=== PATIENT | female | born 1995 ===

== ENCOUNTER 2021-10-13 13:32 | Inpatient (IN) | payer SELFPAY ==
[2021-10-13 15:24] LABS: Hematocrit 42.9 % (30.3-42.9); Mean Corpuscular HGB Conc 33 % (30-34); Mean Corpuscular Volume 87 fl (79-97); Platelet Count 337 K/mm3 (140-440); Red Blood Count 4.95 M/mm3 (3.65-5.03); Red Cell Distribution Width 15.4 % (13.2-15.2)
[2021-10-13 15:28] LABS: Bacteria,Urine 1+ /HPF (Negative); Bilirubin,Urine NEG (Negative); Blood,Urine MOD (Negative); Color,Urine Yellow (Yellow); Mucus,Urine FEW /HPF; Urobilinogen,Urine < 2.0 mg/dL (<2.0)
[2021-10-13 15:46] LABS: Alanine Aminotransferase 13 units/L (7-56); Uric Acid 3.9 mg/dL (3.5-7.6)
[2021-10-13] MEDS ORDERED: PROMETHAZINE 25 MG TAB PO PRN (17:20)
[2021-10-13] MEDS ORDERED: METHYLERGONOVINE MALEATE 0.2 MG/ML VIAL IM PRN (17:20)
[2021-10-13] MEDS ORDERED: LOPERAMIDE 2 MG CAP PO PRN (17:20)
[2021-10-13] MEDS ORDERED: BUTORPHANOL 2 MG/1 ML INJ IV PRN ×2 (17:20)
[2021-10-13] MEDS ORDERED: MINERAL OIL 30 ML ORAL LIQD PO PRN (17:20)
[2021-10-13] MEDS ORDERED: ePHEDrine SULFATE 50 MG/1 ML INJ IV PRN (17:20)
[2021-10-13] MEDS ORDERED: miSOPROStol 200 MCG TAB PR PRN (17:20)
[2021-10-13] MEDS ORDERED: LIDOCAINE (2%) 20 MG/1 ML VIAL 20 ML MDV INFILTRATI ONE ×2 (17:20→21:53)
[2021-10-13] MEDS ORDERED: ACETAMINOPHEN 325 MG TAB PO PRN (17:20)
[2021-10-13] MEDS ORDERED: OXYTOCIN 10 UNIT/1 ML INJ IM PRN (17:20)
[2021-10-13] MEDS ORDERED: NALOXONE 0.4 MG/1 ML INJ IV PRN ×2 (17:20→21:02)
[2021-10-13] MEDS ORDERED: TERBUTALINE 1 MG/1 ML INJ SUB-Q PRN (17:20)
[2021-10-13] MEDS ORDERED: CARBOPROST TROMETHAMINE 250 MCG/1 ML INJ IM PRN (17:20)
[2021-10-13] MEDS ORDERED: fentaNYL 100 MCG/2 ML INJ IV PRN (17:20)
--- NOTE | 2021-10-13 17:49 | History and Physical Report ---
History of Present Illness Date of examination: 10/13/21 Date of admission: 10/13/2021 Chief complaint: Patient presents for direct admit for induction of labor due to elevated blood pressures and contractions. History of present illness: Early entry to care 1st trimester complicated with mild nausea. Past History Past Medical History: no pertinent history, other ([place] at time of delivery in 2016) Past Surgical History: no surgical history [employer] SUPER[employer]OR History: other (abn pap, hx of cervical bx) Social history: , smoking - Obstetrical History Expected Date of Delivery: 10/17/21 Actual Gestation: 39 Week(s) 3 Day(s) : 2 Para: 1 Hx # Term Pregnancies: 1 Number of Pregnancies: 0 Spontaneous Abortions: 0 Induced : 0 Number of Living Children: 1 #1 Gender: Female year: Birthweight: 6 lb ([place]) Method of Delivery: Vaginal Gestational age at delivery: 40 (no aneshtesia, no complication) Complications: none Medications and Allergies Allergies Allergy/AdvReac Type Severity Reaction Status Date / Time No Known Allergies Allergy Unverified 10/13/21 15:02 Active Meds: Active Medications Acetaminophen (Acetaminophen 325 Mg Tab) 650 mg PO Q4H PRN PRN Reason: Pain, Mild (1-3) Butorphanol Tartrate (Butorphanol 2 Mg/1 Ml Inj) 1 mg IV Q2H PRN PRN Reason: Pain, Moderate(4-6) LABOR PAIN Butorphanol Tartrate (Butorphanol 2 Mg/1 Ml Inj) 2 mg IV Q2H PRN PRN Reason: Pain , Severe (7-10) Carboprost Tromethamine (Carboprost Tromethamine 250 Mcg/1 Ml Inj) 250 mcg IM ONCE PRN PRN Reason: Uterine Bleeding Ephedrine Sulfate (Ephedrine Sulfate 50 Mg/1 Ml Inj) 10 mg IV Q2M PRN PRN Reason: Hypotension Fentanyl (Fentanyl 100 Mcg/2 Ml Inj) 100 mcg IV Q2H PRN PRN Reason: Pain,Severe (7-10) LABOR PAIN Oxytocin/Sodium Chloride (Pitocin/Ns 30 Unit/500ml) 30 units in 500 mls @ 2 mls/hr IV TITR BHARAT; Protocol Lactated Ringer's (Lactated Ringers) 1,000 mls @ 125 mls/hr IV DIRECT BHARAT Oxytocin/Sodium Chloride (Pitocin/Ns 30 Unit/500ml) 30 units in 500 mls @ 40 mls/hr IV TITR BHARAT; Protocol Lidocaine (Lidocaine (2%) 20 Mg/1 Ml Vial 20 Ml Mdv) 20 ml INFILTRATI ONCE ONE Stop: 10/13/21 17:21 Loperamide HCl (Loperamide 2 Mg Cap) 2 mg PO ONCE PRN PRN Reason: give with Hemabate Methylergonovine Maleate (Methylergonovine Maleate 0.2 Mg/Ml Vial) 0.2 mg IM ONCE PRN PRN Reason: Uterine Bleeding Mineral Oil (Mineral Oil 30 Ml Oral Liqd) 30 ml PO QHS PRN PRN Reason: Constipation Misoprostol (Misoprostol 200 Mcg Tab) 800 mcg NV ONCE PRN PRN Reason: Uterine Bleeding Naloxone HCl (Naloxone 0.4 Mg/1 Ml Inj) 0.1 mg IV Q2MIN PRN PRN Reason: Res Rate </= 8 or 02 SAT < 92% Oxytocin (Oxytocin 10 Unit/1 Ml Inj) 10 unit IM ONCE PRN PRN Reason: Uterine Bleeding Promethazine HCl (Promethazine 25 Mg Tab) 25 mg PO Q6H PRN PRN Reason: Nausea And Vomiting Terbutaline Sulfate (Terbutaline 1 Mg/1 Ml Inj) 0.25 mg SUB-Q ONCE PRN PRN Reason: Hyperstimulation/Hypertonicity - Vital Signs Vital signs: Vital Signs Pulse BP Pulse Ox 98 H 143/90 98 10/13/21 13:56 10/13/21 13:56 10/13/21 13:56 Temp Pulse Resp BP Pulse Ox 99.0 F 103 H 20 168/94 96 10/13/21 14:05 10/13/21 17:41 10/13/21 14:05 10/13/21 17:28 10/13/21 17:41 - Physical Exam Breasts: Positive: normal Cardiovascular: Regular rate Lungs: Positive: Clear to auscultation Abdomen: Positive: normal appearance, soft, normal bowel sounds, other (moderate firm with contractions; gravid) Genitourinary (Female): Positive: normal external genitalia, normal perenium Vulva: both: normal Vagina: Positive: discharge (pale yellow) Cervix: Positive: discharge Uterus: Positive: normal contour (gravid) Anus/Rectum: Positive: normal perianal skin Extremities: Positive: normal - Obstetrical FHR: category 1 Uterine Contraction Monitor Mode: External Cervical Dilatation: 0 station: OOP Results Result Diagrams: 10/13/21 14:55 10/13/21 14:55 Abnormal lab results 10/13/21 10/13/21 10/13/21 Range/Units 14:45 14:55 14:55 RDW 15.4 H (13.2-15.2) % Creatinine 0.4 L (0.6-1.2) mg/dL U Epithel Cells (Auto) 29.0 H (0-13.0) /HPF All other labs normal. Assessment and Plan A: IUP @ 39.3 wks gestation Category 1 tracing elevated bp GBS neg P: Admit to Labor and delivery unit, per routine orders Pitocin induction epidural AROM Anticipate delivery
[2021-10-13] MEDS ORDERED: OXYTOCIN DRIP 30 UNITS/500 ML BAG IV SCH ×2 (18:00)
--- NOTE | 2021-10-13 18:53 | Event Note ---
Date: 10/13/21 VE -3 SROM clear. cat 1 tracing. augment with pitocin.
[2021-10-13] MEDS: LACTATED RINGERS 1,000 ML IV SCH (19:13)
[2021-10-13] MEDS ORDERED: LIDOCAINE MPF (2%) 20 MG/1 ML VIAL 5 ML ONE (20:28)
--- NOTE | 2021-10-13 20:59 | Anesthesia Consultation ---
Anesthesia Consult and Med Hx - Airway Anesthetic Teeth Evaluation: Good ROM Head & Neck: Adequate Mental/Hyoid Distance: Adequate Mallampati Class: Class II Intubation Access Assessment: Good - Pulmonary Exam CTA: Yes - Cardiac Exam Cardiac Exam: RRR - Pre-Operative Health Status ASA Pre-Surgery Classification: ASA2 Proposed Anesthetic Plan: Epidural - Pulmonary Hx Smoking: No Hx Asthma: No COPD: No Hx Pneumonia: No - Cardiovascular System Hx Hypertension: No - Central Nervous System Hx Seizures: No Hx Psychiatric Problems: No - Endocrine Hx Renal Disease: No Hx End Stage Renal Disease: No Hx Hypothyroidism: No Hx Hyperthyroidism: No - Hematic Hx Anemia: No Hx Sickle Cell Disease: No - Other Systems Hx Alcohol Use: No
--- NOTE | 2021-10-13 21:02 | Progress Note ---
Labor Epidural - Labor Epidural Start Time: 20:30 Stop Time: 20:40 Performed by:: MACHO LANDA Procedure: l2-3 space identified,prep and drape nsf, attempt times one, unable to find space, moved down to L3-4, chacho saline and chacho at 5 cm, cath placed at 10 cm. Sterile dressing applied, neg test, neg heme, neg csf, gabriella well.
[2021-10-13] MEDS ORDERED: MAGNESIUM HYDROXIDE (MOM) ORAL LIQD UDC PO PRN (22:57)
[2021-10-13] MEDS ORDERED: WITCH HAZEL/ GLYCERIN PAD TP PRN (22:57)
[2021-10-13] MEDS ORDERED: BENZOCAINE/MENTHOL 20/0.5% TOP SPRAY 56 GM TP PRN (22:57)
[2021-10-13] MEDS ORDERED: LANOLIN/ZINC/DIMETHICONE (LANSINOH) 7 GM TP PRN (22:57)
[2021-10-13] MEDS ORDERED: MAGNESIUM SULFATE 2 GM/50 ML BAG IV ONE (23:00)
[2021-10-13] MEDS ORDERED: MAGNESIUM SULFATE 4 GM/100 ML BAG IV ONE (23:01)
[2021-10-13 23:12] LABS: Creatinine,Urine 128.8 mg/dL (0.1-20.0)
--- NOTE | 2021-10-13 23:14 | Procedure Note ---
OB Delivery Note - Delivery Date of Delivery: 10/13/21 Surgeon: CIARRA MO Estimated blood loss: 200cc - Vaginal Delivery presentation: vertex Delivery position: OA Intrapartum events: preeclampsia (Patient had BP >160/110 (x2) intrapartum with proteinuria.) Delivery induction: oxytocin Delivery monitor: external FHT, external uterine Route of delivery: Delivery placenta: spontaneous Delivery cord: 3 umbilical vessels Episiotomy: none Delivery laceration: 2nd degree Delivery repair: vicryl (2nd degree laceration repaired with 2-0 Vicryl and 3-0 Vicryl.) Anesthesia: local, epidural - A at 1 minute: 8 at 5 minutes: 9 Infant Gender: Female
[2021-10-13] MEDS ORDERED: MAGNESIUM SULFATE 40GM/1000ML 40 GM/1,000 ML BAG IV SCH (23:45)
[2021-10-14] MEDS: HYDROcodone/ACETAMINOPHEN 5-325 MG TAB PO PRN ×2 (01:35→09:24)
[2021-10-14 07:35] LABS: Hematocrit 38.5 % (30.3-42.9); Hemoglobin 12.7 gm/dl (10.1-14.3); Mean Corpuscular HGB Conc 33 % (30-34); Mean Corpuscular Volume 87 fl (79-97); Platelet Count 290 K/mm3 (140-440); Red Blood Count 4.46 M/mm3 (3.65-5.03)
--- NOTE | 2021-10-14 08:24 | Progress Note ---
Assessment and Plan A: day 1 S/P . Preeclampsia with severe features. P: Continue magnesium sulfate. Monitor BPs. Continue routine care. Subjective - Subjective Date of service: 10/14/21 Principal diagnosis: day 1 S/P ; preeclampsia with severe features Patient reports: appetite normal, pain well controlled, flatus, no nauseated : doing well Objective - Vital Signs Latest vital signs: Vital Signs Temp Pulse Resp BP BP Pulse Ox Pulse Ox 10/14/21 08:16 92 H 97 10/14/21 08:11 94 H 98 10/14/21 08:06 96 H 133/89 98 10/14/21 08:01 85 98 10/14/21 07:56 99 H 98 10/14/21 07:51 87 98 10/14/21 07:46 89 98 10/14/21 07:41 93 H 98 10/14/21 07:36 94 H 129/90 98 10/14/21 07:31 100 H 98 10/14/21 07:26 87 98 10/14/21 07:21 82 96 10/14/21 07:16 84 97 10/14/21 07:11 82 97 10/14/21 07:06 87 123/81 97 10/14/21 07:01 88 97 10/14/21 06:56 83 98 10/14/21 06:51 82 98 10/14/21 06:46 95 H 98 10/14/21 06:41 86 97 10/14/21 06:36 81 127/77 98 10/14/21 06:31 85 98 10/14/21 06:26 86 98 10/14/21 06:21 90 97 10/14/21 06:16 90 96 10/14/21 06:11 89 97 10/14/21 06:06 85 121/76 97 10/14/21 06:01 86 96 10/14/21 05:56 88 97 10/14/21 05:51 88 97 10/14/21 05:46 86 97 10/14/21 05:41 84 97 10/14/21 05:36 82 121/75 98 10/14/21 05:31 86 97 10/14/21 05:26 89 98 10/14/21 05:21 87 97 10/14/21 05:16 87 98 10/14/21 05:11 88 98 10/14/21 05:06 88 117/73 98 10/14/21 05:01 93 H 98 10/14/21 04:56 92 H 97 10/14/21 04:51 91 H 97 10/14/21 04:46 92 H 97 10/14/21 04:41 92 H 97 10/14/21 04:36 90 114/67 97 10/14/21 04:31 94 H 98 10/14/21 04:26 96 H 98 10/14/21 04:21 96 H 97 10/14/21 04:16 94 H 97 10/14/21 04:11 95 H 97 10/14/21 04:06 93 H 116/74 97 10/14/21 04:01 89 96 10/14/21 03:56 99 H 97 10/14/21 03:51 96 H 97 10/14/21 03:46 96 H 97 10/14/21 03:45 97.8 F 16 97 10/14/21 03:41 99 H 98 10/14/21 03:36 97 H 97 10/14/21 03:32 96 H 126/72 10/14/21 03:31 102 H 97 10/14/21 03:26 107 H 97 10/14/21 03:21 104 H 97 10/14/21 03:17 99 H 123/74 10/14/21 03:16 101 H 97 10/14/21 03:11 107 H 97 10/14/21 03:06 103 H 95 10/14/21 03:02 100 H 122/74 10/14/21 03:01 102 H 96 10/14/21 02:56 100 H 97 10/14/21 02:51 98 H 96 10/14/21 02:48 100 H 94 10/14/21 02:47 98 H 116/67 10/14/21 02:46 104 H 96 10/14/21 02:41 100 H 96 10/14/21 02:36 98 H 96 10/14/21 02:32 96 H 121/71 10/14/21 02:31 96 H 96 10/14/21 02:26 95 H 96 10/14/21 02:21 95 H 97 10/14/21 02:17 96 H 119/76 10/14/21 02:16 92 H 97 10/14/21 02:11 97 H 97 10/14/21 02:06 98 H 97 10/14/21 02:02 94 H 128/77 10/14/21 02:01 97 H 96 10/14/21 01:56 98 H 97 10/14/21 01:51 90 96 10/14/21 01:47 87 130/78 10/14/21 01:46 105 H 98 10/14/21 01:41 95 H 97 10/14/21 01:36 109 H 98 10/14/21 01:32 101 H 122/77 10/14/21 01:31 96 H 97 10/14/21 01:26 99 H 97 10/14/21 01:21 101 H 98 10/14/21 01:17 91 H 123/74 10/14/21 01:16 94 H 98 10/14/21 01:11 95 H 98 10/14/21 01:06 98 H 97 10/14/21 01:02 97 H 132/79 10/14/21 01:01 97 H 98 10/14/21 00:56 104 H 97 10/14/21 00:51 101 H 97 10/14/21 00:47 95 H 130/80 10/14/21 00:46 104 H 97 10/14/21 00:41 95 H 98 10/14/21 00:36 94 H 98 10/14/21 00:32 91 H 127/79 10/14/21 00:31 100 H 98 10/14/21 00:26 103 H 97 10/14/21 00:21 106 H 98 10/14/21 00:17 102 H 126/78 10/14/21 00:16 106 H 97 10/14/21 00:11 98 H 98 10/14/21 00:06 92 H 97 10/14/21 00:05 97 10/14/21 00:02 96 H 129/80 10/14/21 00:01 95 H 97 10/13/21 23:56 98 H 97 10/13/21 23:51 97 H 98 10/13/21 23:47 98 H 144/81 10/13/21 23:46 102 H 97 10/13/21 23:41 104 H 97 10/13/21 23:36 102 H 95 10/13/21 23:32 105 H 136/78 10/13/21 23:31 97 H 96 10/13/21 23:30 98.1 F 18 96 10/13/21 23:26 106 H 96 10/13/21 23:21 101 H 96 10/13/21 23:17 100 H 151/81 10/13/21 23:16 97 H 96 10/13/21 23:11 96 H 96 10/13/21 23:06 102 H 97 10/13/21 23:05 93 H 138/79 10/13/21 23:01 102 H 97 10/13/21 22:56 103 H 97 10/13/21 22:51 100 H 97 10/13/21 22:48 101 H 138/91 10/13/21 22:46 99 H 97 10/13/21 22:41 108 H 98 10/13/21 22:36 104 H 98 10/13/21 22:32 111 H 135/69 10/13/21 22:31 96 H 98 10/13/21 22:26 95 H 98 10/13/21 22:21 95 H 97 10/13/21 22:17 105 H 123/58 10/13/21 22:16 107 H 98 10/13/21 22:11 104 H 98 10/13/21 22:06 103 H 97 10/13/21 22:02 106 H 125/61 10/13/21 22:01 109 H 97 10/13/21 21:56 114 H 97 10/13/21 21:51 112 H 97 10/13/21 21:47 130 H 144/63 10/13/21 21:46 122 H 98 10/13/21 21:41 148 H 98 10/13/21 21:39 54 L 10/13/21 21:36 136 H 99 10/13/21 21:33 125 H 146/71 10/13/21 21:31 152 H 99 10/13/21 21:26 129 H 98 05 21:21 100 H 98 05 21:18 100 H 121/77 10/13/21 21:16 103 H 98 10/13/21 21:11 110 H 98 05 21:06 109 H 98 10/13/21 21:01 109 H 98 05 21:00 107 H 116/71 05 20:56 109 H 98 05/26/22 20:51 112 H 172/96 98 10/13/21 20:46 116 H 97 10/13/21 20:45 104 H 144/87 10/13/21 20:42 114 H 141/107 10/13/21 20:41 115 H 96 10/13/21 20:36 103 H 163/97 98 10/13/21 20:31 119 H 97 10/13/21 20:26 99 H 95 10/13/21 20:21 88 97 10/13/21 20:16 95 H 96 10/13/21 20:11 84 96 10/13/21 20:06 108 H 96 10/13/21 20:03 84 145/89 10/13/21 20:01 85 97 10/13/21 19:56 90 97 10/13/21 19:51 93 H 96 10/13/21 19:46 89 96 10/13/21 19:45 100 H 94 10/13/21 19:41 90 96 10/13/21 19:36 92 H 96 10/13/21 19:32 92 H 135/84 10/13/21 19:31 97 H 158/94 97 10/13/21 19:26 92 H 96 10/13/21 19:21 88 96 10/13/21 19:16 105 H 97 10/13/21 19:12 98 F 18 98 10/13/21 19:11 105 H 98 10/13/21 19:08 97 10/13/21 19:06 97 H 98 10/13/21 19:01 94 H 98 10/13/21 18:59 96 H 138/96 10/13/21 18:56 98 H 97 10/13/21 18:51 98 H 97 10/13/21 18:46 100 H 98 10/13/21 18:41 94 H 97 10/13/21 18:36 94 H 98 10/13/21 18:31 92 H 97 10/13/21 18:29 90 136/90 05 18:26 91 H 96 10/13/21 18:21 98 H 98 10/13/21 18:16 100 H 98 10/13/21 18:11 96 H 98 10/13/21 18:06 104 H 98 10/13/21 18:01 97 H 97 10/13/21 17:59 96 H 118/93 05 17:56 91 H 97 10/13/21 17:51 93 H 96 10/13/21 17:46 89 98 10/13/21 17:41 103 H 96 10/13/21 17:36 96 H 96 10/13/21 17:33 99 05 17:31 91 H 97 10/13/21 17:28 93 H 168/94 10/13/21 17:06 101 H 97 10/13/21 17:01 86 96 10/13/21 16:56 88 141/86 95 10/13/21 16:51 92 H 96 10/13/21 16:46 97 H 97 10/13/21 16:41 101 H 177/93 97 10/13/21 16:36 113 H 98 10/13/21 16:31 85 97 10/13/21 16:26 85 98 10/13/21 16:25 83 142/83 10/13/21 16:21 87 98 10/13/21 16:16 91 H 97 10/13/21 16:11 87 97 10/13/21 16:10 85 141/88 10/13/21 16:06 90 97 10/13/21 16:01 91 H 98 10/13/21 15:56 91 H 97 10/13/21 15:55 85 132/83 10/13/21 15:51 103 H 97 10/13/21 15:46 89 97 10/13/21 15:41 86 95 10/13/21 15:40 85 124/80 10/13/21 15:36 89 97 10/13/21 15:31 96 H 96 10/13/21 15:26 91 H 96 10/13/21 15:25 107 H 129/90 10/13/21 15:21 89 97 10/13/21 15:16 102 H 98 10/13/21 15:11 93 H 97 10/13/21 15:10 85 126/87 05 15:06 100 H 97 10/13/21 15:01 91 H 97 10/13/21 14:56 97 H 129/89 96 10/13/21 14:51 93 H 96 10/13/21 14:46 97 H 94 10/13/21 14:42 95 H 147/96 05/22 14:41 93 H 96 10/13/21 14:36 100 H 97 10/13/21 14:31 92 H 97 10/13/21 14:26 97 H 95 10/13/21 14:25 97 H 139/93 10/13/21 14:21 95 H 97 10/13/21 14:16 101 H 96 10/13/21 14:11 98 H 133/92 97 10/13/21 14:06 101 H 96 10/13/21 14:05 99.0 F 99 H 20 143/90 97 10/13/21 14:01 104 H 97 10/13/21 13:56 107 H 143/90 98 Intake and Output 10/13/21 10/14/21 10/14/21 23:59 07:59 15:59 Intake Total 4.6 629.167 Output Total 1000 Balance 4.6 -370.833 Intake: IV 4.6 629.167 Lactated Ringers 1,000 ml 629.167 @ 125 mls/hr IV DIRECT BHARAT Rx#:[id number] PITOCin/NS 30 UNIT/500ML 4.6 30 units In 500 ml @ 2 mls/hr IV TITR BHARAT Rx#: [id number] Output: Urine 1000 Indwelling Catheter 1000 Other: Total, Output Amount 100 Estimated Blood Loss 200 - Exam Cardiovascular: Present: Regular rate Lungs: Present: Clear to auscultation Abdomen: Present: normal appearance, soft. Absent: distention, tenderness, guarding, rigidity Uterus: Present: normal, firm, fundal height below umbilicus (fundus firm and midline at 2 FB below umbilicus). Absent: bogginess, tenderness Extremities: Absent: tenderness - Labs Labs: Abnormal lab results 10/13/21 10/13/21 10/13/21 Range/Units 14:45 14:55 14:55 WBC (4.5-11.0) K/mm3 RDW 15.4 H (13.2-15.2) % Creatinine 0.4 L (0.6-1.2) mg/dL Magnesium (1.7-2.3) mg/dL U Epithel Cells (Auto) 29.0 H (0-13.0) /HPF Urine Creatinine (0.1-20.0) mg/dL Urine Total Protein (5-11.8) mg/dL 10/13/21 10/14/21 10/14/21 Range/Units Unknown 04:56 07:28 WBC 15.3 H (4.5-11.0) K/mm3 RDW (13.2-15.2) % Creatinine (0.6-1.2) mg/dL Magnesium 4.40 H (1.7-2.3) mg/dL U Epithel Cells (Auto) (0-13.0) /HPF Urine Creatinine 128.8 H (0.1-20.0) mg/dL Urine Total Protein 48 H (5-11.8) mg/dL
[2021-10-14] MEDS ORDERED: LACTATED RINGERS 1,000 ML ONE (09:08)
[2021-10-14] MEDS: LACTATED RINGERS 1,000 ML IV SCH (09:12)
[2021-10-14] MEDS: DOCUSATE SODIUM 100 MG CAP PO SCH ×2 (09:22→22:54)
--- NOTE | 2021-10-14 09:30 | Post Anesthesia Evaluation ---
- Post Anesthesia Evaluation Patient Participated: Yes Airway Patent: Yes Stable Respiratory Function: Yes Nausea/Vomiting: No Temp > 96.8F: Yes Pain Manageable: Yes Adequeate Hydration: Yes Anesthesia Complications: No Block Receding Appropriately: Yes Patient on Ventilator: No
[2021-10-14] MEDS: ACETAMINOPHEN 325 MG TAB PO PRN ×2 (16:58→22:54)
[2021-10-14 18:16] LABS: Bilirubin,Urine NEG (Negative); Blood,Urine SM (Negative); Color,Urine Yellow (Yellow); Urobilinogen,Urine < 2.0 mg/dL (<2.0)
--- NOTE | 2021-10-14 18:20 | Event Note ---
Date: 10/14/21 Patient complains of feeling very lethargic and dizzy; 1+ reflexes. Magnesium sulfate stopped. Notified patient, patient's nurse, and Dr. De Los Santos. Stat mag level ordered.
[2021-10-14 18:24] LABS: RBC,Urine < 1.0 /HPF (0.0-6.0); WBC,Urine < 1.0 /HPF (0.0-6.0)
[2021-10-15] MEDS: HYDROcodone/ACETAMINOPHEN 5-325 MG TAB PO PRN (09:33)
[2021-10-15] MEDS: DOCUSATE SODIUM 100 MG CAP PO SCH (09:34)
[2021-10-15 11:05] LABS: Basophils % (Auto) 0.3 % (0.0-1.8); Eosinophils # (Auto) 0.2 K/mm3 (0.0-0.4); Eosinophils % (Auto) 1.4 % (0.0-4.3); Hemoglobin 12.9 gm/dl (10.1-14.3); Lymphocytes # (Auto) 1.9 K/mm3 (1.2-5.4); Lymphocytes % (Auto) 15.3 % (13.4-35.0); Mean Corpuscular HGB Conc 34 % (30-34); Mean Corpuscular Volume 88 fl (79-97); Monocytes # (Auto) 0.6 K/mm3 (0.0-0.8); Monocytes % (Auto) 4.6 % (0.0-7.3); Platelet Count 289 K/mm3 (140-440); Red Blood Count 4.34 M/mm3 (3.65-5.03); Red Cell Distribution Width 15.6 % (13.2-15.2)
[2021-10-15] MEDS: ACETAMINOPHEN 325 MG TAB PO PRN (16:34)
[2021-10-15 17:11] VITALS: BP 140/79
--- NOTE | 2021-10-15 19:06 | Progress Note ---
Assessment and Plan PPD#2 with resolved preeclampsia and normal BP without meds, no severe features 1. Pt counseled on PIH symptoms and will discharge home today with follow office in 1 wk for BP check 2. Recovery Auditor used. All questions encouraged and answered Subjective Date of service: 10/15/21 Principal diagnosis: PPD#2 with preeclampsia, normal BP Interval history: pt has no complaints. Denies headache. Mag stopped more than 24hrs ago and BP wnl. Vag bleed less than a period and pt has no pain. Objective - Constitutional Vitals: Vital Signs - 12hr 10/15/21 10/15/21 10/15/21 07:47 08:00 16:34 Temperature 98.3 F 98.4 F Pulse Rate 80 82 Respiratory 24 20 Rate Blood Pressure 137/76 140/79 O2 Sat by Pulse 98 97 Oximetry O2 Sat by Pulse 98 Oximetry [ Bilateral] General appearance: Present: no acute distress - Neck Neck: normal ROM - Respiratory Respiratory effort: normal - Breasts Breasts: deferred - Cardiovascular Rhythm: regular Extremities: No edema - Gastrointestinal General gastrointestinal: Present: soft, non-tender - Integumentary Integumentary: warm, dry - Neurologic Neurologic: moves all extremities - Psychiatric Psychiatric: cooperative - Labs CBC & Chem 7: 10/15/21 10:38 10/13/21 14:55 Labs: Abnormal lab results 10/15/21 Range/Units 10:38 WBC 12.6 H (4.5-11.0) K/mm3 RDW 15.6 H (13.2-15.2) % Seg Neutrophils % 78.4 H (40.0-70.0) % Seg Neutrophils # 9.9 H (1.8-7.7) K/mm3 Medications & Allergies - Medications Allergies/Adverse Reactions: Allergies No Known Allergies Allergy (Unverified 10/13/21 15:02) Home Medications: Home Medications Medication Instructions Recorded Confirmed Last Taken Type No Known Home Medications [No 10/15/21 10/15/21 Unknown History Reported Home Medications] Active Medications: Generic Name Dose Route Start Last Admin Trade Name Freq PRN Reason Stop Dose Admin Acetaminophen 650 mg 10/13/21 22:57 10/15/21 16:34 Acetaminophen 325 Mg Tab PO 650 mg Q4H PRN Administration Pain MILD(1-3)/Fever >100.5/ROMERO Hydrocodone Bitart/Acetaminophen 2 each 10/13/21 22:57 10/15/21 09:33 Hydrocodone/Acetaminophen 5-325 Mg Tab PO 2 each Q6H PRN Administration Pain, Moderate (4-6) Benzocaine/Menthol 1 spray 10/13/21 22:57 10/14/21 22:55 Benzocaine/Menthol 20/0.5% [address] 56 Gm TP 1 spray PRN PRN Administration Episiotomy Pain Docusate Sodium 100 mg 10/14/21 10:00 10/15/21 09:34 Docusate Sodium 100 Mg Cap PO 100 mg BID BHARAT Administration Magnesium Hydroxide 30 ml 10/13/21 22:57 Magnesium Hydroxide (Mom) Oral Liqd Udc PO HS PRN Constipation Multi-Ingredient Ointment 1 applic 10/13/21 22:57 Lanolin/Zinc/Dimethicone (Lansinoh) 7 Gm TP PRN PRN Sore Nipples Witch Inez/Glycerin 1 each 10/13/21 22:57 10/14/21 22:59 Witch Inez/ Glycerin Pad TP 1 each PRN PRN Administration Hemorrhoid/cleansing/soothing
--- NOTE | 2021-10-15 19:08 | Discharge Summary ---
Providers - Providers Date of Admission: 10/13/21 22:57 Date of discharge: 10/15/21 Attending physician: BRUNILDA NAIR MD Primary care physician: BRUNILDA NAIR MD Hospitalization Reason for admission: IUP at term, other (preeclampsia) Delivery: Laceration: 2nd degree (repaired at delivery by Dr. Krueger) complications: other (preeclampsia and mag sulfate x24hrs) Discharge diagnosis: IUP at term delivered, other (preeclampsia) baby: female Hospital course: Term pt admitted with hypertension with severe features. pt had uncomplicated and given mag sulfate during labor and x24hrs. Pt did not require any oral meds. Condition at discharge: Good Disposition: 01 HOME / SELF CARE / HOMELESS Plan - Provider Discharge Summary Additional instructions: [] Smoking cessation referral if applicable(refer to patient education folder for contact #) [] Refer to [facility] Booklet Call your doctor immediately for: * Fever > 100.5 * Heavy vaginal bleeding ( >1 pad per hour) * Severe persistent headache * Shortness of breath * Reddened, hot, painful area to leg or breast * Drainage or odor from incision. * Keep incision clean and dry at all times and follow doctor's instructions regarding bathing/showering - Follow up plan Follow up: BRUNILDA NAIR MD [Primary Care Provider] - 7 Days
== END 2021-10-15 21:40 | disposition home or self-care (01) | DRG 807 ==
LOC: TRG 13:32 → APU 13:34 → LD 17:16 → TRG 17:56 → OBSVTOIN 22:57 → OB 10-14 19:49
PROVIDERS: ADMIT Obstetrics & Gynecology; ATTEND Obstetrics & Gynecology
PROC: 10E0XZZ Delivery of Products of Conception, External Approach (ICD-10-PCS; principal; 2021-10-13)
PROC: 0KQM0ZZ Repair Perineum Muscle, Open Approach (ICD-10-PCS; 2021-10-13)
PROC: 3E0R3BZ Introduction of Anesthetic Agent into Spinal Canal, Percutaneous Approach (ICD-10-PCS; 2021-10-13)
PROC: 00HU33Z Insertion of Infusion Device into Spinal Canal, Percutaneous Approach (ICD-10-PCS; 2021-10-13)
DX: O14.14 Severe pre-eclampsia complicating childbirth (principal); Z37.0 Single live birth; Z3A.39 39 weeks gestation of pregnancy; O70.1 Second degree perineal laceration during delivery; Z20.822 Contact with and (suspected) exposure to COVID-19
CPT/HCPCS: 36415; 81001; 82565; 82570; 83615; 83735; 84156; 84450; 84460; 84550; 85025; 85027; 86850; 86900; 86901; 87086; G0378; J3490; J2590; J3475; J7120; U0003